=== PATIENT | female | born 1975 | race Caucasian/White ===

== ENCOUNTER 2017-12-24 19:29 | Emergency (ER) | payer OTHER ==
[~2017-12-24] VITALS: Ht 157.5 cm; Wt 95.8 kg
[~2017-12-24 19:29] MED LIST: ENDOCET 5-3251 EACH PO; IBUPROFEN800 MG PO; LOESTRIN 241 TABLET PO; PRENATE CHEWABLE1 MG PO; TYLENOL EXTRA500 MG PO
[2017-12-24] MEDS ORDERED: PREDNISONE10 M1 PO (22:41)
[2017-12-24 22:59] VITALS: BP 102/76
== END 2017-12-24 23:00 | disposition home or self-care (01) ==
LOC: EME 19:29 → RME 19:29
DX: M25.511 Pain in right shoulder (principal)
CPT/HCPCS: 73030; 99281; 99284; J1885